=== PATIENT | male | born 1960 | race Caucasian/White ===

== ENCOUNTER 2018-09-14 10:11 | Inpatient (IN) ==
--- NOTE | 2018-09-14 11:04 | Diag Imaging Result Doc PS360 ---
EXAM: CHEST-2 VIEWS HISTORY: TACHYCARDIA, DYSPNEA TECHNIQUE: Chest two views COMPARISON: None. FINDINGS: Poor inspiratory effort. There are increased interstitial markings throughout both lungs. No pleural effusions. No cardiomegaly. IMPRESSION: Poor inspiratory effort with bilateral infiltrates. Electronically signed by Jacek Garduno 09/14/2018 11:02 AM
[2018-09-14 11:58] LABS: BASO# 0.03 X1000 (0.0-0.2); BASO% 0.5 % (0.0-0.8); EOS# 0.09 X1000 (0.0-0.7); EOS% 1.5 % (0.0-10.0); HEMATOCRIT 44.5 % (42.0-52.0); HEMOGLOBIN 14.6 g/dL (14.0-18.0); LYMPH# 1.13 X1000 (1.2-3.4); LYMPH% 18.3 % (20.5-51.1); MCH 28.4 PG (27-31); MCHC 32.8 g/dL (33-37); MCV 86.6 FL (81-99); MONO# 0.46 X1000 (0.11-0.59); MONO% 7.4 % (1.7-9.3); MPV 11.6 FL (7.4-10.4); NEUT# 4.47 X1000 (1.4-6.5); NEUT% 72.3 % (42.2-75.2); PLT 164 X1000 (130-400); RBC 5.14 XMIL (4.7-6.1); RDW 13.4 % (11.5-14.5); WBC 6.18 X1000 (4.8-10.8)
[2018-09-14 12:09] LABS: AGAP 8; ALBUMIN 4.2 g/dL (3.5-5.0); ALKALINE PHOSPHATASE 103 U/L (32-122); BUN 15 mg/dL (8-22); CALCIUM 9.5 mg/dL (8.8-10.2); CHLORIDE 101 mmol/L (98-107); CK PROFILE 35 U/L (24-204); COSMO 284; ESTIMATED GFR > 60; GLUCOSE 273 mg/dL (70-104); GOT 74 U/L (10-34); GPT 95 U/L (10-44); POTASSIUM 4.7 mmol/L (3.5-5.1); SODIUM 137 mmol/L (136-145); TCO2 28 mmol/L (25-35); TOTAL BILIRUBIN 1.43 mg/dL (0.20-1.00); TOTAL PROTEIN 6.3 g/dL (6.3-8.3)
[2018-09-14 12:20] LABS: HEMOGLOBIN A1C 9.1 % (4.8-6.0)
[2018-09-14 13:04] LABS: SED RATE 3 mm/hr (0-15)
[2018-09-14] MEDS ORDERED: SALINE LOCK IV FLUID XX ONE (13:06)
[2018-09-14] MEDS ORDERED: TYLENOL PO PRN (13:06)
[2018-09-14] MEDS ORDERED: ZOFRAN IV PRN (13:06)
[2018-09-14] MEDS ORDERED: LASIX IV ONE (13:09)
[2018-09-14] MEDS ORDERED: KLOR-CON PO ONE (13:12)
[2018-09-14 13:56] LABS: FREE T4 1.39 ng/dL (0.93-1.70); TSH 1.77 uIUmL (0.27-4.20)
--- NOTE | 2018-09-14 14:35 | Diag Imaging Result Doc PS360 ---
EXAM: CT ANGIOGRM PULMONARY ARTERIES HISTORY: dyspnea/elevated d-dimer TECHNIQUE: CT chest with intravenous contrast. Pulmonary arterial protocol. COMPARISON: None. FINDINGS: There are moderate-sized bilateral effusions measuring 6.1 cm posteriorly and inferiorly in the midline the right and 3.8 cm on the left heart is mildly enlarged. No thoracic aortic aneurysm or dissection. Normal opacification of the pulmonary arteries and their branches. There are scattered granuloma with calcified left hilar lymph nodes. Bilateral faint nodular infiltrates. No bronchiectasis. There is vascular distention. IMPRESSION: 1.No pulmonary emboli 2.Pleural effusions with pulmonary edema 3.Faint nodular infiltrates This exam was performed using automated exposure control, adjustment of mA or kV according to patient size, and/or use of iterative reconstruction technique. Electronically signed by Jacek Garduno 09/14/2018 2:33 PM
[2018-09-14] MEDS: HUMULIN R SUBQ SCH ×2 (16:07→20:49)
[2018-09-14] MEDS: LOPRESSOR PO SCH (20:49)
[2018-09-15] MEDS: LOPRESSOR PO SCH ×2 (00:36→09:29)
[2018-09-15 06:15] LABS: BASO# 0.03 X1000 (0.0-0.2); BASO% 0.5 % (0.0-0.8); EOS# 0.17 X1000 (0.0-0.7); EOS% 2.8 % (0.0-10.0); HEMATOCRIT 43.1 % (42.0-52.0); HEMOGLOBIN 14.1 g/dL (14.0-18.0); IMM GRAN# 0.03 X1000 (0.0-0.04); IMM GRAN% 0.5 % (0.0-0.5); LYMPH# 1.53 X1000 (1.2-3.4); LYMPH% 25.2 % (20.5-51.1); MCH 28.2 PG (27-31); MCHC 32.7 g/dL (33-37); MCV 86.2 FL (81-99); MONO# 0.59 X1000 (0.11-0.59); MONO% 9.7 % (1.7-9.3); MPV 11.4 FL (7.4-10.4); NEUT# 3.72 X1000 (1.4-6.5); NEUT% 61.3 % (42.2-75.2); PLT 154 X1000 (130-400); RDW 13.2 % (11.5-14.5); WBC 6.07 X1000 (4.8-10.8)
[2018-09-15] MEDS: HUMULIN R SUBQ SCH ×4 (06:53→21:25)
[2018-09-15 07:02] LABS: AGAP 10; BUN 17 mg/dL (8-22); CALCIUM 9.1 mg/dL (8.8-10.2); CHLORIDE 97 mmol/L (98-107); COSMO 277; CREATININE 1.1 mg/dL (0.7-1.2); ESTIMATED GFR > 60; GLUCOSE 197 mg/dL (70-104); SODIUM 135 mmol/L (136-145); TCO2 28 mmol/L (25-35)
[2018-09-15] MEDS ORDERED: LASIX IV ONE (08:37)
[2018-09-15] MEDS ORDERED: KLOR-CON PO ONE (08:37)
--- NOTE | 2018-09-15 09:07 | Diag Imaging Result Doc PS360 ---
EXAM: CHEST-2 VIEWS HISTORY: hypoxia TECHNIQUE: Two views COMPARISON: 09/14/2018 FINDINGS: Poor inspiratory effort. There are bilateral infiltrates. These are slightly less pronounced than on the prior study. The heart is mildly enlarged. No pleural effusions. IMPRESSION: Mild interval improvement. Electronically signed by Jacek Garduno 09/15/2018 9:04 AM
--- NOTE | 2018-09-15 13:04 | PROGRESS NOTE ---
DATE: 09/15/2018 SUBJECTIVE: Patient is feeling better in regard to shortness of breath, seeing some improvement. Echocardiogram was done but results are still pending. OBJECTIVE: Vital signs: Afebrile, pulse 85, respirations 18, blood pressure 106/80, O2 saturation on room air 98%. Cardiovascular: Tachycardia improved, now in sinus rhythm. No murmur. Lungs: Minimal decreased breath sounds and possible crackles at lung bases but much improved from yesterday. Abdomen: Nontender, nondistended. Extremities: No calf tenderness, cords or edema. Peripheral pulses 2+. Neurologic: Cranial nerves intact. Nonfocal. Intake and output show 540 in, 2475 out. LABORATORY DATA: Hemoglobin A1c 9.1. Serial cardiac enzymes times 3 negative. Troponins negative x3. IMAGING: CT pulmonary angiogram reveals no pulmonary emboli. Pleural effusions with pulmonary edema. Mild enlargement of the heart. Faint nodular infiltrates. Chest x-ray done this morning reveals mild interval improvement. ASSESSMENT: 1. Congestive heart failure with pleural effusions per CT scan, moderate in degree. 2. Hypertension. 3. Type 2 diabetes mellitus. 4. Obstructive sleep apnea. 5. Gout. 6. Noncompliance. 7. Alcohol use, rule out abuse. PLAN: Will await echocardiogram results. Continue metoprolol and continue Lasix and potassium. Await echo. It has not been read as of yet this morning. I spoke with staff and they are going to get Dr. Munoz to read it. Counseled him to avoid alcohol. Further recommendations pending the echo results. Continue Accu-Cheks and serial SSI. cc: Darnell Syed MD
--- NOTE | 2018-09-15 13:18 | HISTORY AND PHYSICAL ---
CHIEF COMPLAINT: Shortness of breath. HISTORY OF PRESENT ILLNESS: The patient is a 57-year-old, white male who has had pronounced shortness of breath over the past 2 weeks but more severe over the past week. He describes PND and a smothering feeling, especially with exertion. On questioning, dating back to several months ago, maybe 4 to 6 months ago, he has noted some difficulty with walking distances. He is a [place]. He was walking in the [place] and noted he had prominent difficulty with shortness of breath. He denies chest pains. Does admit to some palpitations in the past 2 days. He feels like he has to clear his throat and has a lot of phlegm in his upper lungs/lower throat area a lot. He thought he was having allergy symptoms initially a couple weeks ago. MEDICATIONS PRIOR TO ADMISSION: Patient admits he has been off of his medications for over a year. He is supposed to be on diabetic and blood pressure and gout medications but has a history of noncompliance with those in the past as well. ALLERGIES: No known drug allergies. PAST MEDICAL HISTORY: 1. Hypertension in 1997. 2. Possible PATRICIA. 3. Gout. 4. Type 2 diabetes mellitus with history of noncompliance. Diabetes diagnosed in January 2010. PAST SURGICAL HISTORY: 1. Tonsillectomy. 2. 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 FAMILY HISTORY: Notable for coronary artery disease in his mother at age 55. No strokes in the family. Colon cancer in his mother. Epilepsy in 2 sisters. Mother with diabetes mellitus. SOCIAL HISTORY: The patient lives in [place]. He is single. Lifelong nonsmoker. Admits to drinking alcohol fairly heavily 2 times a week, 3 beers or more. Patient is employed at [employer]. REVIEW OF SYSTEMS: Negative except as above. PHYSICAL EXAMINATION: VITAL SIGNS: Weight 201, height 6 feet 1 inch tall. Blood pressure 126/102, pulse 124, BMI 26, O2 saturation on room air of 98%. GENERAL: Mildly ill-appearing. SKIN: Warm and dry. No rashes. HEENT: NC/AT. [place]UD[place]. EOMI. Sclerae anicteric. Minimal injection. OP, no redness. Tongue in the midline. TMs clear. NECK: No LA, TMG, or cervical LA. Positive JVD. CV: Tachycardia. Regular rhythm. No murmur. LUNGS: Crackles at the lung bases bilaterally. BACK: No CVA tenderness. ABDOMEN: Protuberant, soft, NT, ND. No mass. No HSM. AND RECTAL: Deferred. EXTREMITIES: No CCE. PT 2+. NEUROLOGIC: CN 2 through 12 intact. Nonfocal. DIAGNOSTICS: EKG in the office shows sinus tachycardia with heart rate of 117, left atrial abnormality, poor R-wave progression, nonspecific ST changes. White count 6.1, hemoglobin 14.6, hematocrit 44.5, MCV 86, platelets 164,000, neutrophils 72, lymphocytes 18, monocytes 7.4. Sedimentation rate 3. D-dimer is elevated at 1.4. ProBNP 1812. CK total 35, troponin less than 0.01. Sodium 137, potassium 4.7, chloride 101, CO2 28, BUN 15, creatinine 1.0, glucose 273. Total bilirubin 1.43. Calcium 9.5. AST 74, ALT 95, alkaline phosphatase 103, total protein 6.3, albumin 4.2. TSH 1.77, free T4 1.39. Chest x-ray reveals bilateral lung infiltrates consistent with CHF. No pleural effusions. No cardiomegaly. ASSESSMENT: 1. Bilateral lung infiltrates with dyspnea, rule out congestive heart failure. 2. Hypertension. 3. Type 2 diabetes mellitus. 4. Gout. 5. History of obstructive sleep apnea, not on treatment. PLAN: We will admit the patient. Hemoglobin A1c has been obtained. We will check serial cardiac enzymes and troponin levels. Due to elevated D-dimer, we will check CT, pulmonary angiogram. Start him on IV Lasix and low-dose metoprolol. Check serial Accu-Cheks and give him SSI. Add potassium supplementation. Check echocardiogram. Gout not currently active so we will hold off on allopurinol addition. cc: Darnell Syed MD
--- NOTE | 2018-09-15 14:35 | ECHO REPORT ---
ORDER DATE: 09/14/2018 INDICATION: Dyspnea. FINDINGS: 1. Right atrium appears normal in size. 2. There is mild tricuspid regurgitation. RV systolic pressure of 41. 3. Normal RV size and systolic function. 4. No significant pulmonic insufficiency. 5. Mild left atrial enlargement with a dimension of 4.2 and a volume index of 34. 6. No mitral valve prolapse. Mild mitral regurgitation. 7. Mild dilatation of the left ventricle with an end-diastolic dimension of 5.9. No evidence of left ventricular hypertrophy with the posterior and interventricular septal wall thickness of 0.9 cm each. Severe reduction in LV systolic function with an estimated ejection fraction of 15%. Global hypokinesis. 8. Aortic valve opens well. It is trileaflet. Trace insufficiency. No stenosis. 9. The aorta appears normal in visualized segments. 10. No pericardial effusion seen. cc: MD Darnell Salvador MD
--- NOTE | 2018-09-15 16:11 | CARDIOLOGY CONSULTATION ---
DATE: 09/15/2018 REASON FOR CONSULTATION: Cardiology was congested consulted for congestive heart failure. HISTORY OF PRESENT ILLNESS: 57-year-old, gentleman who has history of having had hypertension, diabetes, stopped taking medications for at least a more than a year. He had been doing reasonably well. However he comes with complaints of increasing shortness of breath with a smothering feeling especially on exertion. This started [place] Easter this year. However prior to that, he had noticed some shortness of breath on doing heavy work. This shortness of breath progressively worsened. He became orthopneic and was admitted. Chest x-ray revealed congestive heart failure. His echocardiogram revealed severe LV dysfunction, and estimated ejection fraction of 15%. There is global hypokinesis. He does not complain of any fevers or chills. Other than smothering feeling denies retrosternal chest discomfort. There is no history of palpitations. There is no dizziness or syncope. He has had episodes of paroxysmal nocturnal dyspnea for the last few weeks. REVIEW OF SYSTEM: 14 point review of systems was done. GI: There is no history of nausea, vomiting, diarrhea. There is no history of hematemesis or melena. Central nervous system: No focal weakness to suggest a CVA or TIA. Genitourinary: There is no dysuria or hematuria. Respiratory System: As above. He has had some dry cough. There is no history of fevers or chills. Endocrine system: Stable. PAST MEDICAL HISTORY: 1. Hypertension. 2. Diabetes. 3. Gout. 4. Osteoarthritis. 5. He has been noncompliant with medications. PAST SURGICAL HISTORY: 1. Right testicular surgery in the past. 2. Tonsillectomy. FAMILY HISTORY: Notable for coronary artery disease in his mother at the age of 55. SOCIAL HISTORY: Patient lives in [place]. Lifelong smoker. Admits to drinking alcohol 2 to 3 beers a week. Employed at [employer]. PHYSICAL EXAMINATION: Vital Signs: Blood pressure was 126/100. Cardiovascular: First and second heart sounds were heard. There was no murmurs there was soft S3 gallop. Jugular venous pressure was mildly elevated. Respiratory: Bibasilar inspiratory crepitations. Abdomen: Soft, obese nontender. There was no guarding or rigidity. Bowel sounds were heard. Central nervous system: Alert and oriented. Moving moving all 4 extremities. Extremities: Revealed no pedal edema. HEENT: Atraumatic, normocephalic. Pupils were equal and reacting to light. DIAGNOSTIC DATA: Electrocardiogram revealed sinus tachycardia. Left atrial enlargement. Poor R- wave progression. Nonspecific ST changes. Cardiac enzymes negative. ProBNP elevated at 1812. Sodium 137, potassium 4.7, BUN 15 creatinine 1. In the office chest x-ray bilateral infiltrates concern is suggestive of congestive heart failure. He had a CT scan done as he had elevated D- dimers which was negative for pulmonary embolism. ASSESSMENT AND PLAN: Mr. Soham machado is a 57-year-old gentleman with history of hypertension, diabetes, has been noncompliant with medications for the last year. He also has history of gout. He comes in with complaints of increasing shortness of breath with paroxysmal nocturnal dyspnea and orthopnea. Patient was admitted with congestive heart failure. Left ventricular ejection fraction by echocardiogram was 15%. Recommendations: 1. We will start him on beta-blockers and Entresto. We will put him on Coreg 6.25 mg twice a day. Entresto 24/ 1 tablet twice a day. 2. Continue with Lasix 40 mg intravenous twice daily. 3. We will also add Aldactone to his medical regimen in addition to digoxin. 4. Once he is euvolemic given the fact that he has hypertension, diabetes and strong family history of coronary artery disease we will plan for left heart catheterization to rule out obstructive coronary artery disease. He does have history of obstructive sleep apnea. He is not on any treatment at the present time. 5. We will also check a fasting lipid profile and hemoglobin A1c as well. 6. Diabetes management as planned. 7. his likely etiology of severe left ventricular dysfunction with congestive heart failure and obstructive coronary artery disease needs to be ruled out definitively. 8. Thank you for the consult. We will follow hospital course. cc: MD Darnell Hernández MD
[2018-09-15] MEDS: LANOXIN PO SCH (18:43)
[2018-09-15] MEDS: COREG PO SCH (21:25)
[2018-09-15] MEDS: ENTRESTO 24 MG-26 MG TABLET PO SCH (21:25)
[2018-09-15] MEDS: LASIX IV SCH (21:26)
[2018-09-16] MEDS: HUMULIN R SUBQ SCH ×4 (06:08→22:20)
[2018-09-16 08:06] LABS: INR 1.04; PROTIME 14.5 Seconds (11.0-16.0)
[2018-09-16 08:22] LABS: AGAP 10; BUN 18 mg/dL (8-22); CHLORIDE 101 mmol/L (98-107); CHOLESTEROL 152 mg/dL (0-200); COSMO 285; ESTIMATED GFR > 60; GLUCOSE 159 mg/dL (70-104); HDL 44 mg/dL (35-55); LDL 92 mg/dL; SODIUM 140 mmol/L (136-145); TCO2 29 mmol/L (25-35); TRIGLYCERIDES 82 mg/dL (39-160); VLDL 16 mg/dL
[2018-09-16] MEDS: LANOXIN PO SCH (08:30)
[2018-09-16] MEDS: ENTRESTO 24 MG-26 MG TABLET PO SCH ×2 (08:30→22:19)
[2018-09-16] MEDS: LASIX IV SCH ×2 (08:31→22:19)
[2018-09-16] MEDS: COREG PO SCH ×2 (08:31→22:19)
[2018-09-16] MEDS ORDERED: ALDACTONE PO SCH (09:00)
[2018-09-16] MEDS: ASPIRIN PO SCH (12:06)
--- NOTE | 2018-09-16 13:35 | CARDIOLOGY PROGRESS NOTE ---
DATE: 09/16/2018 SUBJECTIVE: The patient feels much better since his medications have been changed. His shortness of breath has improved somewhat. Denies any chest pain. There are no palpitations or dizziness. PHYSICAL EXAMINATION: Vital Signs: Blood pressure 106/80. Cardiovascular System: Normal jugular venous pressure. First and second heart sounds were heard. Respiratory System: Few scattered inspiratory crepitations at the bases. Abdomen: Soft, nontender. There was no guarding or rigidity. Bowel sounds were heard. Central Nervous System: Alert and was moving all 4 extremities. Examination of extremities revealed trace edema. LABORATORY EXAMINATION: Sodium 140, potassium 4.0, BUN 18, creatinine 1.0. Cardiac enzymes were negative. Chest x-ray revealed improvement in his heart failure. PROBLEM LIST: 1. Severe left ventricular dysfunction. We will set up for a left heart catheterization in the morning. The risks, benefits, and alternatives were explained. Patient will be set up for a left heart catheterization. 2. Severe left ventricular dysfunction, new onset, with history of hypertension and diabetes as well as an elevated hemoglobin A1c. 3. Likely ischemic cardiomyopathy. He has been started on multiple medications including Entresto, beta blockers, Aldactone, and Lasix. Patient has symptomatically improved. We will continue with the same medications. cc: MD Darnell Hernández MD
--- NOTE | 2018-09-16 19:40 | PROGRESS NOTE ---
DATE: 09/16/2018 SUBJECTIVE: Patient overall feeling better, breathing better. He has been noncompliant with medications longstanding so he had not been on a medication prior to coming in. He still has a little tickle in his throat, but he says that is decreasing markedly. OBJECTIVE: Vital Signs: Afebrile, pulse 120, respirations 12, blood pressure 102/73, O2 saturation on room air 100%. CV: Tachycardia, regular rhythm. Lungs: Minimal crackles on occasion at the lung bases. Back: Nontender. Abdomen: Soft. Nontender, nondistended. No mass. No hepatosplenomegaly. Extremities: Trace lower extremity edema. Neurologic: Cranial nerves 2-12 intact. Nonfocal. LABS: Sodium 140, potassium 4.0, chloride 101, CO2 of 29, BUN 18, creatinine 1.0, glucose in the mid 100s to low 200s. Calcium 9.0, LDL 92, triglycerides 82, HDL 44. ASSESSMENT: 1. Congestive heart failure with pleural effusions. 2. Cardiomyopathy with ejection fraction of 15% per echo, rule out etiology. 3. Hypertension. 4. Type 2 diabetes mellitus. 5. Obstructive sleep apnea, not compliant with CPAP. 6. Gout, inactive. 7. Noncompliance with medications. 8. Alcohol use. Rule out abuse. PLAN: Medications have been adjusted per Cardiology, Dr. Bhatia and include Entresto, Aldactone, Lasix, potassium. He will be undergoing heart catheterization tomorrow. He is also on Coreg and digoxin as well per Dr. Bhatia. He is -3 L the past 24 hours. We will continue to monitor. We will plan on starting medication orally for his diabetes once the heart catheterization has been completed. cc: Darnell Syed MD
[2018-09-17] MEDS: HUMULIN R SUBQ SCH (06:28)
--- NOTE | 2018-09-17 07:30 | EKG Report ---
Test Performed on : 09/17/2018 07:13:08 AM Test Reason : Heart cath standing orders Blood Pressure : / mmHG Vent. Rate : 088 BPM Atrial Rate : 088 BPM P-R Int : 168 ms QRS Dur : 088 ms QT Int : 354 ms P-R-T Axes : 044 017 072 degrees QTc Int : 428 ms Normal sinus rhythm. Nonspecific T wave abnormality Abnormal ECG No previous ECGs available Confirmed by Ricardo CHAND, Delbert Rodriguez ([id number]) on 09/18/2018 10:53:53 AM
[2018-09-17 07:47] LABS: BASO# 0.03 X1000 (0.0-0.2); BASO% 0.4 % (0.0-0.8); HEMOGLOBIN 16.3 g/dL (14.0-18.0); IMM GRAN# 0.02 X1000 (0.0-0.04); IMM GRAN% 0.3 % (0.0-0.5); LYMPH# 1.37 X1000 (1.2-3.4); LYMPH% 20.4 % (20.5-51.1); MCH 28.1 PG (27-31); MCHC 33.3 g/dL (33-37); MCV 84.3 FL (81-99); MONO# 0.72 X1000 (0.11-0.59); MONO% 10.7 % (1.7-9.3); MPV 11.1 FL (7.4-10.4); NEUT# 4.37 X1000 (1.4-6.5); NEUT% 65.2 % (42.2-75.2); PLT 178 X1000 (130-400); RBC 5.81 XMIL (4.7-6.1); RDW 13.1 % (11.5-14.5); WBC 6.71 X1000 (4.8-10.8)
--- NOTE | 2018-09-17 07:52 | Diag Imaging Result Doc PS360 ---
EXAM: CHEST-2 VIEWS INDICATION: chf TECHNIQUE: 2 views COMPARISON: 09/15/2018 FINDINGS: The bilateral infiltrates continue to improve to near resolution. No new consolidation is identified. Cardiac silhouette is stable. IMPRESSION: Continued improvement to near resolution. Electronically signed by Ronald Wade 09/17/2018 7:49 AM
[2018-09-17 08:03] LABS: INR 1.1
[2018-09-17 08:04] LABS: PTT 28.3 Seconds (22.3-41.8)
[2018-09-17 08:05] LABS: AGAP 11; ALB/GLOB RATIO 1.5; ALBUMIN 3.9 g/dL (3.5-5.0); ALKALINE PHOSPHATASE 96 U/L (32-122); BUN 21 mg/dL (8-22); CALCIUM 8.9 mg/dL (8.8-10.2); CHLORIDE 100 mmol/L (98-107); COSMO 286; CREATININE 1.2 mg/dL (0.7-1.2); ESTIMATED GFR > 60; GLUCOSE 158 mg/dL (70-104); GOT 33 U/L (10-34); GPT 61 U/L (10-44); MAGNESIUM 1.7 mg/dL (1.5-2.7); POTASSIUM 4.3 mmol/L (3.5-5.1); SODIUM 140 mmol/L (136-145); TCO2 29 mmol/L (25-35); TOTAL BILIRUBIN 1.39 mg/dL (0.20-1.00); TOTAL PROTEIN 6.5 g/dL (6.3-8.3)
[2018-09-17] MEDS ORDERED: HEPARIN 1000 UNITS/NS 2,000 UNIT/1,000 ML IV.SOLN ONE (08:22)
[2018-09-17] MEDS ORDERED: NS 1,000 ML ONE (08:55)
[2018-09-17] MEDS ORDERED: CLAVE PUMP SET NO FILTER 12260 ONE (08:55)
[2018-09-17] MEDS ORDERED: CLAVE TWINSITE 32 IN 11959 ONE (08:55)
[2018-09-17] MEDS ORDERED: MORPHINE ONE (08:58)
[2018-09-17] MEDS ORDERED: VERSED ONE (08:59)
[2018-09-17] MEDS: COREG PO SCH (12:01)
[2018-09-17] MEDS: ENTRESTO 24 MG-26 MG TABLET PO SCH (12:01)
[2018-09-17] MEDS: ASPIRIN PO SCH (12:02)
[2018-09-17] MEDS: LANOXIN PO SCH (12:02)
--- NOTE | 2018-09-17 12:51 | DISCHARGE SUMMARY ---
DATE: 09/17/2018 SUBJECTIVE: The patient status post heart catheterization this morning showing severe CAD. He is being transferred to [facility] by grave cleaner Dr. Bhatia for further evaluation and possible CABG. OBJECTIVE: Vital Signs: Afebrile, pulse 87, respirations 16, and BP 105/74. O2 saturation room air 98% CV: RRR. Lungs: Clear. Abdomen: Nontender. Active bowel sounds. Soft. Nondistended. Extremities: No calf tenderness, cords or edema. LABORATORY: White count today 6.7, hemoglobin 16.3, and platelets 178,000. CMP shows elevated ALT at 61, AST 33, total bilirubin 1.39, glucose 158, sodium 140, potassium 4.3, BUN 21, and creatinine 1.2. ASSESSMENT: 1. Congestive heart failure with pleural effusions, much improved on x-ray now with chest x-ray essentially clear. 2. Ischemic cardiomyopathy with EF of 15% per echo. 3. CAD, three-vessel. 4. Hypertension. 5. Type 2 diabetes mellitus. 6. PATRICIA. 7. Gout inactive. 8. Noncompliance with medications for hypertension, diabetes and with CPAP he has been noncompliant. 9. Alcohol use, rule out abuse. PLAN: The patient is being transferred for CV surgery evaluation. He is on Entresto, Aldactone, Lasix, potassium, Coreg, and digoxin per Dr. Bhatia. cc: Darnell Syed MD
[2018-09-17 14:25] VITALS: BP 106/84
--- NOTE | 2018-09-17 20:19 | CARDIAC CATH REPORT ---
PROCEDURE NAME: - PROCEDURE PERFORMED: Left heart catheterization with selective coronary angiography and left ventriculography. INDICATIONS: Ischemic cardiomyopathy with recent development of congestive heart failure. ENTRY SITE: Right femoral artery. CATHETERS USED: 5-[place] JL4, 3DRC, and angled pigtail. TECHNIQUE: After intravenous sedation with morphine and Versed, local anesthesia with lidocaine was applied over right femoral artery. Arterial access was established with placement of a 5- [place] sheath in the right femoral artery using modified Seldinger technique. Selective coronary angiography was performed, followed by left heart catheterization and left ventriculography. Upon completion of procedure, arterial sheath was removed from right femoral artery and hemostasis facilitated with manual pressure. The patient tolerated the procedure without apparent complications. FINDINGS: HEMODYNAMICS: Aortic pressure 98/67 with a mean of 81. Left ventricular pressure 98 over EDP of 20. COMMENTS ON HEMODYNAMICS: There is no significant gradient across the aortic valve demonstrated on pullback from the left ventricle. ANGIOGRAPHY: 1. Left ventriculogram: The left ventricle is mildly enlarged with estimated left ventricular ejection fraction of 20% in the setting of global hypokinesis and akinesis of the mid anterior wall and mid inferior wall. There is no significant mitral regurgitation. 2. Left main coronary artery: Left main coronary is free of significant coronary stenosis. 3. Left anterior descending coronary: The left anterior descending coronary demonstrates a moderate (70%) stenosis after the proximal 1/3 of the vessel and just before a small 1st diagonal branch. The small 1st diagonal branch demonstrates subtotal stenosis proximally. The left anterior descending coronary just after origin of the small 1st diagonal branch gives rise to a medium size 2nd diagonal branch. The mid left anterior descending coronary after origin of 2nd diagonal branch demonstrates a focal moderate (50%) stenosis. The 2nd diagonal branch demonstrates a severe (greater than 90%) stenosis proximally. 4. Ramus intermedius branch: There is a medium size ramus intermedius branch demonstrated which is free of significant coronary stenosis. 5. Left circumflex coronary artery: The left circumflex coronary artery gives rise to a 1st obtuse marginal, which is occluded proximally and never is really seen to fill via collateral flow. The distal left circumflex coronary artery demonstrates a severe (95%) stenosis before a medium to large posterolateral system. 6. Right coronary artery: The dominant right coronary demonstrates a moderate (50%) eccentric stenosis at midvessel after origin of the right ventricular branch. The posterior descending artery demonstrates a severe (80% to 90%) stenosis in its midportion. CONCLUSIONS: 1. Severe ischemic cardiomyopathy with left ventricular ejection fraction of approximately 20%. 2. Severe 3 vessel coronary atherosclerosis as described. RECOMMENDATIONS: Angiographic findings were reviewed with the consulting cap machine operator, Dr. Trevor Bhatia. It is felt best to refer patient for coronary artery bypass surgery, and arrangements were made to have patient transferred to [facility]. cc: MD Darnell Robertson MD
== END 2018-09-17 15:35 | disposition short-term general hospital (02) | DRG 287 ==
LOC: LAB 10:11 → 3N 12:37
PROVIDERS: ADMIT Family Medicine; ATTEND Family Medicine
CPT/HCPCS: 36415; 71020; 71046; 71275; 80048; 80053; 80061; 82550; 82948; 83036; 83735; 83880; 84439; 84443; 84484; 85025; 85379; 85610; 85651; 85730; 93005; 93010; 93306; 93458; 94761; A9270; J1644; J1940; J2250; J2270; J7030; Q9967; XXXXX